=== PATIENT | male | born 1965 | race Caucasian/White ===

== ENCOUNTER 2019-08-25 20:56 | Emergency (ER) | payer MEDICARE ==
[~2019-08-25] VITALS: Ht 162.6 cm; Wt 106.6 kg
--- OUTSIDE RECORDS SUMMARY | 2019-08-25 20:59 | XMS REPORT ---
Author Author [facility] Address Unknown Phone Unavailable Care Team Providers Care Consultants Intern Name Role Phone HUANG, ABUNDIO MORALES Unavailable SANDRA WILKES Unavailable Unavailable Problems This patient has no known problems. Allergies, Adverse Reactions, Alerts This patient has no known allergies or adverse reactions. Medications This patient has no known medications. Results Test Description Test Time Test Comments Text Results Atomic Results Result Comments Culture, Blood Routine 2017-02-23 08:13:00 Specimen: BloodCollected: 02/17/2017 17:35 Status: Final Last Updated: 02/23/2017 08:13 Culture Result (Final) (Final) No Growth After 5 Days Culture, Blood Routine 2017-02-21 20:25:00 Specimen: BloodCollected: 02/16/2017 14:25 Status: Final Last Updated: 02/21/2017 20:25 (1) ER Bed Hall20 Culture Result (Final) (Final) No Growth After 5 Days Culture, Blood Routine 2017-02-21 20:25:00 Specimen: BloodCollected: 02/16/2017 14:25 Status: Final Last Updated: 02/21/2017 20:25 (1) ER Bed Hall20 Culture Result (Final) (Final) No Growth After 5 Days CBC with Differential 2017-02-20 09:41:00 WBC (test code=WBC) 7.9 K/cumm 4.4-10.5 RBC (test code=RBC) 3.41 M/cumm 4.10-5.70 Hemoglobin (test code=HGB) 11.9 gm/dL 13.4-17.4 Hematocrit (test code=HCT) 33.5 % 38.7-52.0 MCV (test code=MCV) 98.3 fL 80-100 MCH (test code=MCH) 34.9 pg 27.0-32.5 MCHC (test code=MCHC) 35.5 g/dL 32.0-37.5 RDW (test code=RDW) 16.0 % 11.5-14.5 Platelet Count (test code=PLTCT) 131 K/cumm 140-440 MPV (test code=MPV) 7.6 fL Diff Method (test code=DIFFM) Auto Neutrophil (test code=NEUT) 64.9 % 36-70 Lymphocyte (test code=LYMPH) 26.5 % 12-44 Monocyte (test code=MONO) 5.8 % 0-11 Eosinophil (test code=EOS) 2.5 % 0-7 Basophil (test code=BASO) 0.4 % 0-2 Neutro Abs (test code=ANEUT) 5.1 K/cumm 1.6-7.4 Lymph Abs (test code=ALYMPH) 2.1 K/cumm 0.5-4.6 [place] Abs (test code=AMONO) 0.5 K/cumm 0.0-1.2 Eos Abs (test code=AEOS) 0.19 K/cumm 0.00-0.74 Baso Abs (test code=ABASO) 0.0 K/cumm 0.00-0.21 Macrocytosis (test code=MACRO) Slight Renal [id number] 08:25:00* Test Item Value Reference Range Comments Sodium (test code=NA) 135 mmol/L 135-145 Potassium (test code=K) 4.7 mmol/L 3.5-5.1 Chloride (test code=CL) 94 mmol/L 98-105 Carbon Dioxide (test code=CO2) 22 mmol/L 22-29 Glucose (test code=GLU) 92 mg/dL 70-115 Blood Urea Nitrogen (test code=BUN) 52 mg/dL 6-20 Creatinine (test code=CREAT) 10.0 mg/dL 0.7-1.2 Calcium (test code=CA) 9.7 mg/dL 8.3-10.5 Albumin (test code=ALB) 4.4 g/dL 3.5-5.2 Phosphorus (test code=PO4) 8.5 mg/dL 2.70-4.50 BUN/Creatinine Ratio (test code=BCRATIO) 5.2 Anion Gap (test code=AGAP) 19 mmol/L 7-16 Estimated GFR (test code=GFR) 6 mL/min/1.73m2 eGFR (estimated Glomerular Filtration Rate) is an estimated value,calculated from the patient's serum creatinine using the MDRD equation.It is NOT the patient's actual GFR. The eGFR provides a more clinicallyuseful measure of kidney disease than serum creatinine alone.This calculation takes sex and race into account, if the informationis provided. If the race is not provided, and the patient isAfrican-Marshallese, multiply by 1.212. If sex is not provided, and thepatient is female, multiply by 0.742. Results for patients <18 years ofage have not been validated by the MDRD study and should be interpretedwith caution.eGFR Result Interpretation:eGFR > or=60 is in the Normal RangeeGFR < 60 may mean kidney diseaseeGFR < 15 may mean kidney failureRanges recommended by the National Kidney Foundat ion,http://nkdep.nih.gov Magnesium, [id number] 08:19:00* Test Item Value Reference Range Comments Magnesium (test code=MG) 2.2 mg/dL 1.7-2.5 XR CHEST 2V, [id number] 18:13:24CHEST, TWO VIEWSLocation: [id number] HISTORY: Shortness of breathTechnique: PA frontal and lateral views were obtained.FINDINGS: Comparison made to prior study February 16, 2017. There has been priormidline sternotomy. There is a dual-lumen catheter from the right withits tip projecting over the distal SVC. Aortic and hilar outlines arenormal. There is mild enlargement of the cardiac silhouette. There ismild central vascular congestion. No confluent infiltrate, pleuraleffusion or pneumothorax. Surgical clips are seen at the right exitleft.IMPRESSION:Mild central vascular congestion. No infiltrates.Hep B Surface [id number] 15:28:00* Test Item Value Reference Range Comments Hep Bs Ag (test code=HBSAG) Nonreactive Non-Reactive Hep B Surface [id number] 15:20:00* Test Item Value Reference Range Comments Hep Bs Ab (test code=HBSAB) Reactive Non-Reactive Reactive Hepatitis B Surface antibody indicates previous Hepatitis Binfection or administration of Hepatitis B vaccine. Presence ofHepatitis B Surface antibody without presence of Hepatitis B Surfaceantigen is evidence of immunity. Hep B Core [id number] 15:20:00* Test Item Value Reference Range Comments HBC Total (test code=HBCAB) Nonreactive Non-Reactive Hepatitis Acute [id number] 14:43:00* Test Item Value Reference Range Comments Hep Bs Ag (test code=HBSAG) Nonreactive Non-Reactive Hep C Ab (test code=HCAB) Nonreactive Non-Reactive A Reactive result may indicate a past or present HCV infection orpossibly a carrier state. It is not diagnostic of Hepatitis C.However, a patient with a repeatedly Reactive result should beconsidered infectious. Reactive for HCV antibody by EIA screeningshould be confirmed by a supplemental test. Hepatitis A IgM (test code=HAVM) Nonreactive Non-Reactive Hep B Core IgM (test code=HBCABM) Nonreactive Non-Reactive Renal [id number] 11:55:00* Test Item Value Reference Range Comments Sodium (test code=NA) 134 mmol/L 135-145 Potassium (test code=K) 5.1 mmol/L 3.5-5.1 Chloride (test code=CL) 95 mmol/L 98-105 Carbon Dioxide (test code=CO2) 21 mmol/L 22-29 Glucose (test code=GLU) 86 mg/dL 70-115 Blood Urea Nitrogen (test code=BUN) 76 mg/dL 6-20 Creatinine (test code=CREAT) 11.7 mg/dL 0.7-1.2 Calcium (test code=CA) 9.4 mg/dL 8.3-10.5 Albumin (test code=ALB) 4.0 g/dL 3.5-5.2 Phosphorus (test code=PO4) 9.8 mg/dL 2.70-4.50 BUN/Creatinine Ratio (test code=BCRATIO) 6.5 Anion Gap (test code=AGAP) 18 mmol/L 7-16 Estimated GFR (test code=GFR) 5 mL/min/1.73m2 eGFR (estimated Glomerular Filtration Rate) is an estimated value,calculated from the patient's serum creatinine using the MDRD equation.It is NOT the patient's actual GFR. The eGFR provides a more clinicallyuseful measure of kidney disease than serum creatinine alone.This calculation takes sex and race into account, if the informationis provided. If the race is not provided, and the patient isAfrican-Marshallese, multiply by 1.212. If sex is not provided, and thepatient is female, multiply by 0.742. Results for patients <18 years ofage have not been validated by the MDRD study and should be interpretedwith caution.eGFR Result Interpretation:eGFR > or=60 is in the Normal RangeeGFR < 60 may mean kidney diseaseeGFR < 15 may mean kidney failureRanges recommended by the National Kidney Foundat ion,http://nkdep.nih.gov CBC with [id number] 11:35:00* Test Item Value Reference Range Comments WBC (test code=WBC) 6.1 K/cumm 4.4-10.5 RBC (test code=RBC) 3.12 M/cumm 4.10-5.70 Hemoglobin (test code=HGB) 10.9 gm/dL 13.4-17.4 Hematocrit (test code=HCT) 30.8 % 38.7-52.0 MCV (test code=MCV) 98.6 fL 80-100 MCH (test code=MCH) 34.8 pg 27.0-32.5 MCHC (test code=MCHC) 35.3 g/dL 32.0-37.5 RDW (test code=RDW) 16.1 % 11.5-14.5 Platelet Count (test code=PLTCT) 119 K/cumm 140-440 MPV (test code=MPV) 7.7 fL Diff Method (test code=DIFFM) Auto Neutrophil (test code=NEUT) 68.8 % 36-70 Lymphocyte (test code=LYMPH) 24.1 % 12-44 Monocyte (test code=MONO) 5.0 % 0-11 Eosinophil (test code=EOS) 1.8 % 0-7 Basophil (test code=BASO) 0.3 % 0-2 Neutro Abs (test code=ANEUT) 4.2 K/cumm 1.6-7.4 Lymph Abs (test code=ALYMPH) 1.5 K/cumm 0.5-4.6 [place] Abs (test code=AMONO) 0.3 K/cumm 0.0-1.2 Eos Abs (test code=AEOS) 0.11 K/cumm 0.00-0.74 Baso Abs (test code=ABASO) 0.0 K/cumm 0.00-0.21 Macrocytosis (test code=MACRO) Slight Free T4 (Free Thyroxine)2017-02-17 08:48:00* Test Item Value Reference Range Comments T4, Free (test code=FT4) 1.19 ng/dL 0.930-1.700 Thyroid Stimulating Hormone (TSH)2017-02-17 08:48:00* Test Item Value Reference Range Comments TSH (test code=TSH) 2.06 mIU/mL 0.270-4.200 Basic Metabolic [id number] 08:29:00* Test Item Value Reference Range Comments Sodium (test code=NA) 137 mmol/L 135-145 Potassium (test code=K) 5.0 mmol/L 3.5-5.1 Chloride (test code=CL) 94 mmol/L 98-105 Carbon Dioxide (test code=CO2) 25 mmol/L 22-29 Glucose (test code=GLU) 79 mg/dL 70-115 Blood Urea Nitrogen (test code=BUN) 47 mg/dL 6-20 Creatinine (test code=CREAT) 9.1 mg/dL 0.7-1.2 Calcium (test code=CA) 9.7 mg/dL 8.3-10.5 BUN/Creatinine Ratio (test code=BCRATIO) 5.2 Anion Gap (test code=AGAP) 18 mmol/L 7-16 Estimated GFR (test code=GFR) 7 mL/min/1.73m2 eGFR (estimated Glomerular Filtration Rate) is an estimated value,calculated from the patient's serum creatinine using the MDRD equation.It is NOT the patient's actual GFR. The eGFR provides a more clinicallyuseful measure of kidney disease than serum creatinine alone.This calculation takes sex and race into account, if the informationis provided. If the race is not provided, and the patient isAfrican-Marshallese, multiply by 1.212. If sex is not provided, and thepatient is female, multiply by 0.742. Results for patients <18 years ofage have not been validated by the MDRD study and should be interpretedwith caution.eGFR Result Interpretation:eGFR > or=60 is in the Normal RangeeGFR < 60 may mean kidney diseaseeGFR < 15 may mean kidney failureRanges recommended by the National Kidney Foundat ion,http://nkdep.nih.gov CBC with [id number] 08:13:00* Test Item Value Reference Range Comments WBC (test code=WBC) 6.8 K/cumm 4.4-10.5 RBC (test code=RBC) 3.19 M/cumm 4.10-5.70 Hemoglobin (test code=HGB) 11.0 gm/dL 13.4-17.4 Hematocrit (test code=HCT) 32.0 % 38.7-52.0 MCV (test code=MCV) 100.4 fL 80-100 MCH (test code=MCH) 34.5 pg 27.0-32.5 MCHC (test code=MCHC) 34.3 g/dL 32.0-37.5 RDW (test code=RDW) 16.3 % 11.5-14.5 Platelet Count (test code=PLTCT) 134 K/cumm 140-440 MPV (test code=MPV) 7.6 fL Diff Method (test code=DIFFM) Auto Neutrophil (test code=NEUT) 66.2 % 36-70 Lymphocyte (test code=LYMPH) 25.7 % 12-44 Monocyte (test code=MONO) 5.5 % 0-11 Eosinophil (test code=EOS) 2.4 % 0-7 Basophil (test code=BASO) 0.3 % 0-2 Neutro Abs (test code=ANEUT) 4.5 K/cumm 1.6-7.4 Lymph Abs (test code=ALYMPH) 1.7 K/cumm 0.5-4.6 [place] Abs (test code=AMONO) 0.4 K/cumm 0.0-1.2 Eos Abs (test code=AEOS) 0.16 K/cumm 0.00-0.74 Baso Abs (test code=ABASO) 0.0 K/cumm 0.00-0.21 Macrocytosis (test code=MACRO) Slight US DUPLX EXT VEIN COMPRS, [id number] 16:28:24Exam: Right upper extremity venous Doppler ultrasoundLocation: R 16History: SwellingComparison: None availableTechnique: Static, grayscale images of the right upper extremity venousstructures were obtained with and without compression.Findings:Normal flow is identified within the internal jugular, subclavian,axillary, brachial, median cubital, radial and ulnar veins. No fillingdefects are identified. There is normal compressibility. The cephalicvein and the mid and distal portions of the basilic vein are notvisualized. Surgical skin ivone are identified in the upper arm.There is a arteriovenous fistula identified in the upper extr emity.Arterial flow is identified in the proximal mid and distal portions ofthe fistula. No filling defects are identified. Distal anastomosis iswithin normal l imits.Impression:1. No sonographic evidence for right upper extremity deep venou sthrombosis.2. Arteriovenous fistula is patent.Findings were discussed with Dr. Alexandre at 1615 hours on 02/16/2017.Comprehensive Metabolic [id number] 15:31:00* Test Item Value Reference Range Comments Sodium (test code=NA) 135 mmol/L 135-145 Potassium (test code=K) 6.1 mmol/L 3.5-5.1 VERIFIED BY REPEAT TESTINGREAD BACK LAB VALUESP JOSHUA SANCHEZ 15:21 02/16/2017 ./OG Chloride (test code=CL) 93 mmol/L 98-105 Carbon Dioxide (test code=CO2) 20 mmol/L 22-29 Glucose (test code=GLU) 94 mg/dL 70-115 Blood Urea Nitrogen (test code=BUN) 76 mg/dL 6-20 Creatinine (test code=CREAT) 12.0 mg/dL 0.7-1.2 Calcium (test code=CA) 9.7 mg/dL 8.3-10.5 Prot Total (test code=TP) 7.3 g/dL 6.4-8.3 Albumin (test code=ALB) 4.2 g/dL 3.5-5.2 A/G Ratio (test code=AGRATIO) 1.4 Ratio Globulin (test code=GLOB) 3.1 2.9-3.1 Bili Total (test code=TBIL) 0.3 mg/dL 0.1-0.9 Alk Phos (test code=APHOS) 70 U/L 40-129 AST (test code=AST) <5 U/L 1-40 ALT (test code=ALT) <5 U/L 1-41 BUN/Creatinine Ratio (test code=BCRATIO) 6.3 Anion Gap (test code=AGAP) 22 mmol/L 7-16 Estimated GFR (test code=GFR) 5 mL/min/1.73m2 eGFR (estimated Glomerular Filtration Rate) is an estimated value,calculated from the patient's serum creatinine using the MDRD equation.It is NOT the patient's actual GFR. The eGFR provides a more clinicallyuseful measure of kidney disease than serum creatinine alone.This calculation takes sex and race into account, if the informationis provided. If the race is not provided, and the patient isAfrican-M[place]ese, multiply by 1.212. If sex is not provided, and thepatient is female, multiply by 0.742. Results for patients <18 years ofage have not been validated by the MDRD study and should be interpretedwith caution.eGFR Result Interpretation:eGFR > or=60 is in the Normal RangeeGFR < 60 may mean kidney diseaseeGFR < 15 may mean kidney failureRanges recommended by the National Kidney Foundat ion,http://nkdep.nih.gov Lactic Acid [id number] 15:19:00* Test Item Value Reference Range Comments Lactic Acid, Bld (test code=LAC) 1.1 mmol/L 0.5-1.9 CBC with [id number] 14:53:00* Test Item Value Reference Range Comments WBC (test code=WBC) 12.0 K/cumm 4.4-10.5 RBC (test code=RBC) 3.09 M/cumm 4.10-5.70 Hemoglobin (test code=HGB) 11.0 gm/dL 13.4-17.4 Hematocrit (test code=HCT) 30.7 % 38.7-52.0 MCV (test code=MCV) 99.4 fL 80-100 MCH (test code=MCH) 35.7 pg 27.0-32.5 MCHC (test code=MCHC) 35.9 g/dL 32.0-37.5 RDW (test code=RDW) 16.0 % 11.5-14.5 Platelet Count (test code=PLTCT) 161 K/cumm 140-440 MPV (test code=MPV) 7.5 fL Diff Method (test code=DIFFM) Auto Neutrophil (test code=NEUT) 80.5 % 36-70 Lymphocyte (test code=LYMPH) 15.0 % 12-44 Monocyte (test code=MONO) 3.1 % 0-11 Eosinophil (test code=EOS) 1.2 % 0-7 Basophil (test code=BASO) 0.3 % 0-2 Neutro Abs (test code=ANEUT) 9.6 K/cumm 1.6-7.4 Lymph Abs (test code=ALYMPH) 1.8 K/cumm 0.5-4.6 [place] Abs (test code=AMONO) 0.4 K/cumm 0.0-1.2 Eos Abs (test code=AEOS) 0.14 K/cumm 0.00-0.74 Baso Abs (test code=ABASO) 0.0 K/cumm 0.00-0.21 Macrocytosis (test code=MACRO) Slight XR CHEST 1 [id number] 14:17:39XR CHEST 1 VIEW, 02/16/2017 2:02 PMReason For Examination: dialysisComparison: None availableLocation: N50Yljxnecl LUNGS:Increased interstitial markings suggestive of mild pulmonary edemaversus pneumonitis.PLEURA: No pleural effusions CARDIOMEDIASTINUM:Enlarged with postsurgical changes notedA right double-lumen central line is seen with tips in the right atrium.IMPRESSION:Increased interstitial markings suggestive of mild pulmonary edemaversus pneumonitis.
--- OUTSIDE RECORDS SUMMARY | 2019-08-25 20:59 | XMS REPORT | Summary of Care ---
Author Author [facility] Cavanaugh, [facility] Address Unknown Phone Unavailable Care Team Providers Care Descriptive Catalog Librarian Name Role Phone FAY BEAR M.D. Unavailable Unavailable HIREN JOHNSTON M.D. 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 * Quantity: 90 Refills: 1 FAY BEAR M.D. * Start : 17-Jul-2018 Active Allergies and Adverse Reactions Name Dates Details No Known Drug Allergies (Allergy) Status: Active Past Medical History Name Dates Details Aftercare following surgery (V58.89, Z48.89) Status: Active History of Acute Myocardial Infarction (V12.59) Status: Resolved History of essential hypertension (V12.59, Z86.79) Status: Resolved History of Morbid obesity (278.01, E66.01) Status: Resolved History of Postoperative examination (V67.00, Z09) Status: Resolved Procedures Procedure Dates Details History of CABG Completed History of Central IV Line Child Age 4 Or Older With Tunneling Completed History of Direct Arteriovenous Anastomosis Completed History of Dialysis Completed Immunization Name Dates Details Immunizations not documented Family History Name Dates Details Family history of cardiac disorder (V17.49, Z82.49) Status: Active Social History Name Dates Details - Status: Name Dates Details Former smoker Vital Signs Date Test Result Details No Known Vitals to report Results Date Description Value Details Results not documented Plan of Care Name Dates Details Planned Observations Planned Goals not documented Planned Encounters Appointment; HIREN JOHNSTON M.D. On: 19-Mar-2019 16:30 Interventions Provided Plan* Plan Colonoscopy * RTC pending result Instructions Name Dates Details Instructions not documented Encounters Appointment; CHARLEY ABAD M.D. Encounter Diagnosis: Problem not documented On: 22-Apr-2018 7:45 Appointment; ANTHONY RIVAS Encounter Diagnosis: Problem not documented On: 17-Jul-2018 13:00 Appointment; FAY BEAR M.D. Encounter Diagnosis: Problem not documented On: 17-Jul-2018 13:30 Appointment; FAY BEAR M.D. Encounter Diagnosis: Problem not documented On: 21-Aug-2018 10:30 Appointment; HIREN JOHNSTON M.D. Encounter Diagnosis: Problem not documented On: 19-Mar-2019 16:30
--- NOTE | 2019-08-25 22:05 | NUR ---
{null, PT STATES TOOK TYLEOLX2 AND ADVIL X4 1 1/2HRS LUMBER SALVAGER. }
[2019-08-25] MEDS ORDERED: TIZANIDINE HCL4 MG PO (22:59)
[2019-08-25] MEDS ORDERED: ULTRAM50 MG PO (23:04)
[2019-08-25 23:45] VITALS: BP 168/67
== END 2019-08-25 23:23 | disposition home or self-care (01) ==
LOC: FSED 20:56
DX: M54.6 Pain in thoracic spine (principal); I12.0 Hypertensive chronic kidney disease with stage 5 chronic kidney disease or end stage renal disease; N18.6 End stage renal disease; Z99.2 Dependence on renal dialysis; I50.9 Heart failure, unspecified; I25.2 Old myocardial infarction; Z95.1 Presence of aortocoronary bypass graft
CPT/HCPCS: 99282